=== PATIENT | male | born 1980 | race Two or more races ===

== ENCOUNTER → 2017-06-14 | Outpatient (REF) | payer OTHER | LOC: M SMT 13:01 | PROVIDERS: ATTEND Urology | DX: Z30.09 Encounter for other general counseling and advice on contraception (principal) ==

== ENCOUNTER 2018-06-12 11:12 | Emergency (ER) | payer OTHER ==
[2018-06-12] MEDS: methylPREDNISolone INJ 125 MG/2 ML VIAL (J2930) IV (11:40)
[2018-06-12] MEDS: diphenhydrAMINE INJ 50MG/ML VIAL (J1200) IV (11:40)
[2018-06-12] MEDS: ONDANSETRON 4MG/2ML VIAL (J2405) IV (12:00)
== END 2018-06-12 14:48 | disposition home or self-care (01) ==
LOC: M ED 11:12
DX: L29.9 Pruritus, unspecified (principal); T63.441A Toxic effect of venom of bees, accidental (unintentional), initial encounter; Z87.892 Personal history of anaphylaxis; Z88.5 Allergy status to narcotic agent; Z79.899 Other long term (current) drug therapy
CPT/HCPCS: J1200